=== PATIENT | female | born 1985 | race Caucasian/White ===

== ENCOUNTER 2018-10-14 13:03 | Observation (INO) | payer OTHER ==
--- NOTE | 2018-10-14 14:46 | ED ---
Neurological HPI - HPI Summary HPI Summary: Pt is a 33 y/o F presenting to the ED with a chief complaint of a seizure. 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 Her coworkers stood by her and advised her to drink water, but she couldnt find her water even though it was right in front of her, and then she turned her head to the far left, and her whole body went stiff. Per the pts sister who presents with her, she was very confused and could not see after her episode. She could not recognize her sister or her mom, and told them she had a bite nahid on her tongue. She did not report any headache prior to this incident, but did state she did not feel well. The pt denies feeling nauseous prior to this happening. She currently reports nausea, shortness of breath, fatigue, and dizziness. She denies headache, neck pain, chest pain, fever, dysuria, or burning with urination. - History of Current Complaint Chief Complaint: EDSeizure Stated Complaint: SYNCOPE PER EMS Time Seen by Provider: 10/14/18 14:09 Last Known Well Date: 10/14/18 approx. noontime Hx Obtained From: Patient, Family/Pipe Manufacture Supervisor Onset/Duration: Sudden Onset, Resolved Timing: Intermittent Episodes Lasting: - unsure duration, <10min Onset Severity: Moderate Current Severity: None Seizure Severity: Moderate Number of Seizures: 1 Pain Intensity: 0 Pain Scale Used: 0-10 Numeric Character: Dizzy, Confusion, Lethargy Aggravating: Fatigue Alleviating: Spontanious Resolution Associated Signs and Symptoms: Positive: Headache, Confusion, Seizure, Neck Pain /Stiffness, Shortness of Breath. Negative: Fever, Chest Pain - Allergy/Home Medications Allergies/Adverse Reactions: Allergies Allergy/AdvReac Type Severity Reaction Status Date / Time No Known Allergies Allergy Verified 10/14/18 15:13 Home Medications: Home Medications NK [No Home Medications Reported] 10/14/18 [History Confirmed 10/14/18] PMH/Surg Hx/FS Hx/Imm Hx Previously Healthy: Yes Endocrine/Hematology History: Denies: Hx Diabetes Cardiovascular History: Denies: Hx Hypertension Infectious Disease History: No Infectious Disease History: Denies: Traveled Outside the [place] in Last 30 Days - Family History Known Family History: Negative: Cardiac Disease - Social History Alcohol Use: None Hx Substance Use: No Substance Use Type: Reports: None Hx Tobacco Use: No Smoking Status (MU): Never Smoked Tobacco Review of Systems Positive: Fatigue. Negative: Fever Negative: Chest Pain Positive: Shortness Of Breath Positive: Nausea Negative: burning, dysuria Negative: Myalgia Neurological: Other - dizziness Negative: Headache Positive: Other - confused All Other Systems Reviewed And Are Negative: Yes Physical Exam - Summary Physical Exam Summary: Constitutional: Well-developed, Well-nourished, Alert. (+) Distressed Skin: Warm, Dry HENT: Normocephalic; Atraumatic Eyes: Conjunctiva normal Neck: Musculoskeletal ROM normal neck. (-) JVD, (-) Stridor, (-) Tracheal deviation Cardio: Rhythm regular, rate normal, Heart sounds normal; Intact distal pulses; The pedal pulses are 2+ and symmetric. Radial pulses are 2+ and symmetric. (-) Murmur Pulmonary/Chest wall: Effort normal. (-) Respiratory distress, (-) Wheezes, (-) Rales Abd: Soft, (-) tenderness, (-) Distension, (-) Guarding, (-) Rebound Musculoskeletal: (-) Edema Lymph: (-) Cervical adenopathy Neuro: Alert, Oriented x3, confused Psych: Mood and affect uncomfortable and tearful Triage Information Reviewed: Yes Vital Signs On Initial Exam: Initial Vitals Temp Pulse Resp BP Pulse Ox 98.0 F 86 20 115/70 100 10/14/18 13:17 10/14/18 13:17 10/14/18 13:17 10/14/18 13:17 10/14/18 13:17 Vital Signs Reviewed: Yes - Ulices Coma Scale Best Eye Response: 4 - Spontaneous Best Motor Response: 6 - Obeys Commands Best Verbal Response: 5 - Oriented Coma Scale Total: 15 Procedures - Lumbar Puncture Midline Procedural Sedation: none Position: Sitting Aseptic Technique: Local Anesthesia Anesthesia Used: 1.0% Lido - ~3ml Lumbar Puncture Note: Pt responded well, sterile technique used. Diagnostics - Vital Signs Vital Signs Temp Pulse Resp BP Pulse Ox 10/14/18 13:17 98.0 F 86 20 115/70 100 - Laboratory Result Diagrams: 10/14/18 14:47 10/14/18 14:47 Lab Statement: Any lab studies that have been ordered have been reviewed, and results considered in the medical decision making process. - CT Brain CT CT Interpretation Completed By: Radiologist Summary of CT Findings: No acute intracranial pathology. ED physician has reviewed this report. - EKG 1437 Cardiac Rate: NL - 68bpm EKG Rhythm: Sinus Rhythm ST Segment: Normal Ectopy: None Summary of EKG Findings: EKG at 1437 shows NSR at 68bpm with nml RI interval, nml ST segment, and nml Qtc. This is a normal EKG. Re-Evaluation - Re-Evaluation 1st re-eval Re-Evaluation Time: 14:30 Change: Unchanged Comment: Pt is A&Ox3, neuro exam is normal. There are no focal neurological deficits, cranial nerves are intact, and she seems much more comfortable. Second Eval Re-Evaluation Time: 16:28 Change: Worse Comment: Pt has reportedly had another seizure that lasted about 15 seconds, with associated shoulder twitching and vomiting just after. Pt is presently sleepy. Third Eval Re-Evaluation Time: 20:00 Change: Improved Comment: Pt is alert and oriented x4, doing well, and conversive. Course/Dx - Course Course Of Treatment: Pt is a 33 y/o F presenting to the ED brought in by EMS for a seizure. She was at work, and her coworkers state she reported feeling ill , became giggly, then confused, then she turned her neck to the far left and her whole body tensed. Per the pts sister who presents with her, she was very confused and could not see after her episode. She could not recognize her sister or her mom, and told them she had a bite nahid on her tongue. She did not report any headache prior to this incident, but did state she did not feel well. The pt denies feeling nauseous prior to this happening. She currently reports nausea, shortness of breath, fatigue, and dizziness. She denies headache , neck pain, chest pain, fever, dysuria, or burning with urination. EKG at 1437 shows NSR at 68bpm with nml RI interval, nml ST segment, and nml Qtc. This is a normal EKG. Brain CT shows no acute intracranial pathology. Pts lab work shows nml bloodwork, nml INR, serum alcohol <10. Her chemistry shows a potassium of 3.3, BUN/Creatinine ratio of 27.7, Magnesium of 1.7, and total bilirubin of 1.10. Her lactic acid is 1.8. Pt reportedly has had another seizure at approximately 1628 that lasted about 15 seconds with associated shoulder twitching and vomiting just after. She will be admitted to [facility] under Dr. Sharp with a dx of seizures. - Diagnoses Provider Diagnoses: Seizures Discharge - Sign-Out/Discharge Documenting (check all that apply): Patient Departure - Discharge Plan Condition: Stable Disposition: ADMITTED TO [facility] - Billing Disposition and Condition Condition: STABLE Disposition: Admitted to [facility] - Attestation Statements Document Initiated by Scribe: Yes Documenting Scribe: Radhika Conrad Provider For Whom Ankita is Documenting (Include Credential): Svetlana Carroll MD. Scribe Attestation: IRadhika, scribed for Svetlana Bryant MD. on 10/14/18 at 2241. Scribe Documentation Reviewed: Yes Provider Attestation: The documentation as recorded by the scribe, Radhika Conrad accurately reflects the service I personally performed and the decisions made by me, Svetlana Bryant MD. Status of Scribe Document: Viewed Consult Consult: 163 - I spoke with Dr. Huff about the pt's present condition who recommended admitting the pt for observation, and he will see her in the morning. 182 - I spoke with Dr. Emery who will be accepting the pt for admission.
[2018-10-14 14:55] LABS: ABS Basophils 0.1 10^3/ul (0-0.2); ABS Eosinophils 0 10^3/ul (0-0.6); ABS Lymphocytes 1.2 10^3/ul (1.0-4.8); ABS Monocytes 0.7 10^3/ul (0-0.8); ABS Nucleated RBC 0 10^3/ul; Eosinophil % 0.3 %; Hematocrit 39 % (35-47); Hemoglobin 13.1 g/dL (12.0-16.0); Lymphocyte % 13.8 %; Mean Corpuscular HGB Conc 34 g/dL (31-36); Mean Corpuscular Hemoglobin 31 pg (27-31); Mean Corpuscular Volume 90 fL (80-97); Mean Platelet Volume 7.9 fL (7.4-10.4); Nucleated Red Blood Cells % 0; Platelet Count 234 10^3/uL (150-450); Red Blood Count 4.29 10^6 /uL (3.70-4.87); Red Cell Distribution Width 13 % (10.5-15)
[2018-10-14] MEDS ORDERED: Ondansetron INJ* 2 MG/ML VIAL IV ONE (15:17)
[2018-10-14 15:18] LABS: HCG Pregnancy < 0.60 mIU/mL
[2018-10-14 15:21] LABS: ALT 20 U/L (7-52); AST 23 U/L (13-39); Albumin 4.7 g/dL (3.2-5.2); Alkaline Phosphatase 49 U/L (34-104); Anion Gap 11 mmol/L (2-11); BUN/Creatinine Ratio 27.7 (8-20); Blood Urea Nitrogen 18 mg/dL (6-24); CO2 Carbon Dioxide 23 mmol/L (22-32); Calcium 9.8 mg/dL (8.6-10.3); Chloride 104 mmol/L (101-111); EGFR African American 128.6 (>60); EGFR Non-African American 106.3 (>60); Globulin 2.4 g/dL (2-4); Glucose 114 mg/dL (70-100); Magnesium 1.7 mg/dL (1.9-2.7); Potassium 3.3 mmol/L (3.5-5.0); Sodium 138 mmol/L (135-145); Total Protein 7.1 g/dL (6.4-8.9)
[2018-10-14 15:50] LABS: Alcohol < 10 mg/dL (<10)
[2018-10-14 15:51] LABS: TSH (Thyroid Stimulating Horm) 1.69 mcIU/mL (0.34-5.60)
[2018-10-14] MEDS ORDERED: Magnesium Sulfate 1 GM IV* 1 GM/100 ML BAG IV ONE (16:08)
[2018-10-14] MEDS ORDERED: Potassium Chlor TAB* 20 MEQ TAB.ER PO ONE (16:08)
[2018-10-14] MEDS ORDERED: PROCHLORPERAZINE INJ 5 MG/ML 2 ML VIAL IV ONE (17:33)
[2018-10-14] MEDS ORDERED: KCL 20 MEQ/100 ML IVPREMIX* 20 MEQ/100 ML BAG IV ONE (18:26)
[2018-10-14 19:16] LABS: Urine Appearance Clear; Urine Bilirubin Negative (Negative); Urine Blood Negative (Negative); Urine Color Yellow; Urine Glucose Negative (Negative); Urine Ketones 2+ (Negative); Urine Nitrite Negative (Negative); Urine Protein Negative (Negative); Urine Specific Gravity 1.017 (1.010-1.030); Urine Urobilinogen Negative (Negative)
[2018-10-14] MEDS ORDERED: Acetaminophen TAB* 325 MG PO ONE (20:06)
[2018-10-14 20:09] LABS: Body Fluid Source Cerebral Spinal
[2018-10-14] MEDS ORDERED: Acetaminophen TAB* 325 MG PO PRN (20:17)
[2018-10-14] MEDS ORDERED: Ondansetron INJ* 2 MG/ML VIAL IV PRN (20:17)
[2018-10-14 20:26] LABS: CSF Glucose 72 mg/dL (40-70)
[2018-10-14 21:09] LABS: Body Fluid Mono 4 %
[2018-10-14 21:11] LABS: Body Fluid Comment SEE COMMENTS
[2018-10-14] MEDS: NS 0.9% 1000 ML** 1,000 ML IV SCH (22:15)
--- NOTE | 2018-10-14 23:18 | HP ---
CC: Katie Becker NP * HISTORY AND PHYSICAL: DATE OF ADMISSION: 10/14/18 PRIMARY CARE DOCTOR: Katie Becker NP. MY ATTENDING PHYSICIAN WHILE IN HOSPITAL: Dr. Bari Quintana * (DICTATED BY ARIANA PEREZ) CHIEF COMPLAINT: Seizure x2. HISTORY OF PRESENT ILLNESS: Ms. Lvein is a 33-year-old female with no significant past medical history, who presents to the emergency department after today she was feeling in her normal state of health until about lunch time when she began to feel lightheaded, dizzy and she states she felt like the room was frankly spinning. She had some nausea, did not feel like she vomited at this time. The patient has, per her report, never felt like this before, but her sister does state that the patient has reported to her previously feeling similarly around lunchtime, which she related to low blood sugar, but that she did feel dizzy, but has never passed out before. The patient is on a ketogenic diet. The patient denies any fevers, chills. No recent sick contacts , though she does work at [employer]. The patient since the morning of 07/04 has had a severe headache. The patient does not usually get headaches. The patient describes the headache as bitemporal, pounding. There was some concern the patient had changes in her vision, but her vision normalized after it was found she was not wearing her glasses. The patient was noticed at [employer] to have loss of consciousness with convulsive movements. The circumstances surrounding this are unclear at this time; the patient unable to provide them. The patient was confused upon arrival to the emergency department. The patient in the emergency department had another episode that lasted approximately 15 seconds wherein she was sat up, felt nauseated and then forcibly knocked her head back and then had twitching in her right arm. The patient lost consciousness for approximately 15 seconds, but the twitching in her right arm persisted. After this time, the patient had again vomited after this episode. The patient states that her headache had diminished significantly after her seizures, but was still rated approximately 7/10. The patient denies photophobia or phonophobia. No fevers or chills. No chest pain , shortness of breath, abdominal pain, diarrhea or pain with urination. The patient takes no medications except for multivitamins. The patient took nothing for her headache. Due to the concern for new onset seizure, we were asked to evaluate the patient for admission to hospital. PAST MEDICAL HISTORY: None. PAST SURGICAL HISTORY: None. MEDICATIONS: Multivitamin. ALLERGIES: No known drug allergies. FAMILY HISTORY: The patient's mother and father are alive and well. The patient's maternal grandfather of lung cancer. The patient's maternal grandmother of complication of diabetes. The patient's paternal grandmother of colon cancer. The patient's paternal grandfather's medical history is unknown. SOCIAL HISTORY: The patient is never smoker, does not drink, does not use illicit drugs. 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 The patient is , has 2 children. The patient's surrogate decision maker I believe is her sister Cecy Thibodeaux . REVIEW OF SYSTEMS: A 14-point review of systems was reviewed with the patient and is negative except as above in the HPI. PHYSICAL EXAMINATION GENERAL: The patient is a 33-year-old female, who appears stated age and sitting comfortably in bed, in no acute distress. VITAL SIGNS: At the time of evaluation, temperature 98.0, pulse rate 90, respiratory rate 20, oxygen saturation 100% on room air, blood pressure 99/47. HEENT: Head: Normocephalic, atraumatic. Sclerae anicteric. No conjunctival injection. Nasal mucosa moist. Oral mucosa moist. No pharyngeal erythema, discharge, or exudate. NECK: Supple, nontender. No lymphadenopathy. No carotid bruit auscultated. No JVD. RESPIRATORY: Clear to auscultation bilaterally. No wheezes, rales or rhonchi. Good air exchange bilaterally. CARDIAC: Regular rate and rhythm. No clicks, murmurs, gallops or rubs. Pulse is 2+ in the dorsalis pedis, posterior tibialis, and radial areas. ABDOMEN: Soft, nontender, nondistended. Bowel sounds present. Normoactive in all 4 quadrants. No hepatosplenomegaly. No abdominal bruits auscultated. No hepatojugular reflux. GENITOURINARY: No suprapubic or CVA tenderness. NEUROLOGIC: Cranial nerves II through XII intact. No focal deficits. The patient is drowsy, but is arousable and oriented x3. PSYCHIATRIC: Pleasant and cooperative. SKIN: Clean, dry, intact. No rash. DIAGNOSTIC STUDIES/LAB DATA: White blood cell count 11.0, hemoglobin 13.1, platelet count 234, INR 1.0. Sodium 138, potassium 3.3, chloride 104, carbon dioxide 23, anion gap 11, BUN 18, creatinine 0.65, BUN:creatinine ratio 27.7, glucose 117, lactic acid 1.8, calcium is 9.8, magnesium 1.7, bilirubin 1.1, AST 23, ALT 20, alkaline phosphatase is 49. Protein 7.1, albumin 4.7, globulin 2.4 , TSH 1.69, beta-hCG less than 0.6. Urine yellow clear, 2+ ketones, otherwise unremarkable. CSF glucose 72, CSF total protein 33, cell count pending at this time. Serum alcohol less than 10. Studies: CT brain shows no acute intracranial pathology. Electrocardiogram shows normal sinus rhythm, early repolarization in V2, normal axis, rate of 68, QTc of 461. No other significant abnormalities. ASSESSMENT AND PLAN: Impression: Ms. Levin is [id number] with no significant past medical history, who presents to the emergency department after having a witnessed seizure at her place of work and then another seizure in the emergency department. The patient remains in the hospital for evaluation and institution of appropriate treatment. 1. New onset seizures. The patient had convulsions witnessed twice. The patient's second convulsions were witnessed by her sister who relates that she moved her head forcibly backwards and to her left and then had right handed twitching. The patient became very stiff throughout this time as well. This happened right after the patient sat up. Given this occurred when the patient sat up and she has been having low blood pressures, is on a very restricted diet , has other signs on her lab work of have being dehydrated, it is possible this represents convulsive syncope. This would be consistent with patient feeling lightheaded around lunchtime on previous days as well. However, this could also be new onset epilepsy. There is also concern by Neurology for this being related to viral meningitis, though the patient does not have a fever. The patient does have a headache. The patient has not had fever or other signs of meningitis. The patient is status post lumbar puncture, the results of which are pending at this time. Appropriate treatment will be instituted. Herpes simplex PCR has been sent, though the patient has normal protein again arguing against this. The patient will have an EEG and neurology consult in the morning. 3. Dehydration. The patient is dehydrated, likely related to her restrictive diet. The patient will be given fluids for blood pressure support and to help prevent repeat possible convulsive syncope . 4. DVT prophylaxis. The patient was ad jenelle. 5. FEN. The patient will be on a regular unrestricted diet and fluids at 125 mL an hour. 6. Disposition: The patient will be admitted under observation. TIME SPENT: Approximately 75 minutes were spent on this admission of this patient; 30 of which was spent [id number] with the patient, entire family, obtaining history and physical and discussing treatment plan. This plan was discussed with my attending, Dr. Dr. Bari Quintana, and he is in agreement. ARIANA PEREZ [id number]/CPS #: [id number] HILARY
[2018-10-15] MEDS: NS 0.9% 1000 ML** 1,000 ML IV SCH (05:54)
[2018-10-15 06:21] LABS: ABS Basophils 0 10^3/ul (0-0.2); ABS Eosinophils 0.1 10^3/ul (0-0.6); ABS Lymphocytes 1.6 10^3/ul (1.0-4.8); ABS Neutrophils 6.3 10^3/ul (1.5-7.7); ABS Nucleated RBC 0 10^3/ul; Eosinophil % 0.6 %; Hematocrit 33 % (35-47); Hemoglobin 11.4 g/dL (12.0-16.0); Mean Corpuscular HGB Conc 34 g/dL (31-36); Mean Corpuscular Hemoglobin 31 pg (27-31); Mean Corpuscular Volume 91 fL (80-97); Mean Platelet Volume 8.1 fL (7.4-10.4); Nucleated Red Blood Cells % 0; Platelet Count 215 10^3/uL (150-450); Red Blood Count 3.68 10^6 /uL (3.70-4.87); Red Cell Distribution Width 13 % (10.5-15); White Blood Count 8.9 10^3/uL (3.5-10.8)
[2018-10-15 06:37] LABS: BUN/Creatinine Ratio 18.2 (8-20); Calcium 8.6 mg/dL (8.6-10.3); EGFR Non-African American 128.9 (>60); Potassium 3.4 mmol/L (3.5-5.0)
[2018-10-15 08:11] VITALS: BP 92/49
[2018-10-15] MEDS ORDERED: Gadoteridol* (CONTRAST) 279.3 MG/ML 10 ML IV ONE (09:53)
[2018-10-15] MEDS ORDERED: Gadoteridol* (CONTRAST) 279.3 MG/ML 10 ML IV SCH (10:00)
[2018-10-15] MEDS ORDERED: Potassium Chloride LIQUID 20 MEQ/15 ML PO ONE (10:02)
[2018-10-15] MEDS ORDERED: lamoTRIgine TAB(*) 25 MG PO ONE ×2 (12:33→13:00)
[2018-10-15] MEDS ORDERED: levETIRAcetam TAB* 500 MG PO SCH (13:00)
[2018-10-15] MEDS ORDERED: LAMOTRIGINE 25 MG PO SCH (13:00)
--- NOTE | 2018-10-15 16:28 | CONSULT ---
Consult Consult: I added a paraneoplastic panel to the CSF to rule out any mild form of limbic encephalitis that can be causing Flory to have new onset seizures. I will follow-up with the results. Gucci Huff MD
--- NOTE | 2018-10-15 17:05 | CONS ---
NEUROLOGY CONSULTATION NOTE: DATE OF CONSULT: 10/15/18 CONSULTING PROVIDER: Dr. Knox. REASON FOR CONSULT: Seizure. CHIEF COMPLAINT: Seizure. HISTORY OF PRESENT ILLNESS: Mrs. Flory Levin is a 33-year-old fairly healthy female who had 2 witnessed seizures on 10/14/18. According to the bystanders, the patient was apparently complaining of feeling dizzy. She did not remember going on a lunch break or having popcorn with friends. She was asked to sit down when she was feeling dizzy. After few minutes, she was able to get up and walk to a nearby lunch room. Friends were reporting that she was inappropriately giggling. She could not stop trembling and shaking her extremities. She also asked to have a drink of water during this time. Then suddenly, the patient was laid slowly on to the ground where she immediately "whipped her head" towards one side. The exact direction of the head turning was unknown. She started vomiting. Paramedics were contacted and she was placed on a stretcher. Dr. 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 The patient stated that she does not remember getting into the ambulance or arriving at the hospital. She was reported to be confused by family. She was unable to recognize other family members while in the ER. Approximately, 4 hours after the first incident at 4: 25 p.m., the patient wanted to sit up and then suddenly, she had another event. At that time, her sister was able to describe the incident as head deviation towards the left side, eyes rolling to the back of the head, foaming of the mouth, and generalized convulsion. Prior to the event, she had right-sided tremors. She denied any impairment in her bowel or bladder functions, but did have a small laceration on the left side of the tongue. The patient was not treated with any medications and after 20 seconds, the symptoms went away. The patient has not had any events since yesterday. She was never treated with seizure medications. She was extensively evaluated with recent laboratory data showing a WBC of 9.0, hemoglobin of 13.1, hematocrit of 39, platelet count of 234, sodium of 138, potassium 3.3, chloride of 104, BUN of 18, creatinine of 0.65, lactic acid of 1.8, glucose of 114. Urinalysis showed no evidence of pyuria. She had a lumbar puncture done because she was complaining of headaches following the seizure. The lumbar puncture showed no evidence of any infection. CSF wbc is 1, rbc is 1, total cell count of 24, lymphocytic count of 20, glucose of 72 and total protein of 33. Serum alcohol level was less than 10. Urine toxicology screen was not done. She had a CT of the head without contrast, it showed no evidence of intracranial abnormality. She had an MRI of brain with and without contrast, seizure protocol, that showed no evidence of mesial temporal sclerosis or heterotopia. The patient did have an EEG that showed multifocal areas of slowing with some increased areas of epileptogenic potential in the left frontal region. SEIZURE RISK FACTORS: The patient has no history of meningitis or encephalitis. She was born full-term via normal vaginal delivery. She had no developmental complications. She was graduated from college. She denied any head trauma. She denied any brain or spinal cord surgery. There is no family history of epilepsy. PAST MEDICAL HISTORY: The patient complains of fatigue. She had a sleep study done 6 months ago and it was normal. She was placed on Provigil for few months , but the patient ran out of the medications 2 months ago. She has never had a refill for Provigil. The patient did endorse sleep deprivation. She only had 4 - 1/2 hours of sleep that night. PAST SURGICAL HISTORY: None. She had 2 normal vaginal deliveries. FAMILY HISTORY: No family history of stroke or seizures. Her parents are fairly healthy. SOCIAL HISTORY: Denied any tobacco or alcohol use. She is happily . She stated that she has increasing stress recently because her had to leave the state for work for 1 night. She is not used to being home alone without her . MEDICATIONS: None. ALLERGIES: No known drug allergies. REVIEW OF SYSTEMS: A 14-point review of systems was obtained and otherwise negative, except for what was mentioned in the HPI. PHYSICAL EXAMINATION: Vital Signs: Temperature of 98.2, pulse of 65, respiratory rate of 16, oxygen saturation 98%, blood pressure of 92/49. Please note that the patient did have orthostatic vitals checked and orthostatic vitals are negative except for her heart rate increase from 83 to 115 when standing which is positive. General: A well-nourished, well-developed female, in no acute distress. Head: Normocephalic without any obvious abnormality. Eyes: Conjunctivae/corneas are clear. Neck is supple and symmetrical. No carotid bruits. Lungs are clear to auscultation bilaterally. Cardiovascular: Regular rate and rhythm with normal S1 and S2. Extremities: Normal range of motion with no cyanosis. Skin: No skin lesions or lacerations. Psychiatric: Affect is broad and normal mood. She did seem slightly anxious during the interview. Neurological Examination: Mental status: Awake, alert, oriented to person, place, time and general circumstances. Speech and language including expression , naming, repetition and comprehension were assessed and found to be normal. Cranial Nerves: Normal confrontation testing bilaterally. Pupils are mid range and reactive. Extraocular muscles are intact. Sensation is intact in the forehead, cheeks and jaw region bilaterally. There is no facial droop. She is able to hear throughout the history process. Symmetrical palatal elevation. Normal strength against resistance. Tongue is symmetrical and midline with no atrophy or fasciculation. Motor Examination: No abnormal movements or pronator drift. A 5/5 strength in the upper and lower extremities. Reflexes are 2+ in the brachioradialis, biceps, triceps, patella, ankle and downgoing plantar responses bilaterally. Sensation is intact to light touch throughout. Coordination: Normal [id number] and rapid alternating movement. Gait and Station: Narrow based, normal stance and gait. No ataxia. ASSESSMENT AND RECOMMENDATIONS: Mrs. Flory Levin is a 33-year-old fairly healthy female who has a history of fatigue and was placed on Provigil in the past, who presented with 2 seizures four hours apart. She did not seem to completely regain awareness after the first seizure. 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 She did not have any evidence of intracranial abnormality on MRI, specifically no hypothalamic hamartomas or mesial temporal sclerosis. The only concerning finding here is the EEG abnormality which was abnormal suggestive of possible increased epileptogenic potentials. Given that she has an EEG abnormality, this would increase her risk of seizure recurrence by up to 50% within the next 2 years. The patient does also have evidence of orthostatic hypotension which could also be contributing to her presentation, but should not be causing the EEG abnormalities. After giving all the results to the patient and family members at the bedside, we have decided to proceed with treatment with anti-seizure medications to prevent another seizure. She may have had seizures for a long time and that may be explaining some of her nonspecific symptoms of fatigue. She did recall a few events where she would wakes up feeling extremely sore in the morning, which was not explained by any recent strenuous activity. Her does not recall seeing her ever having seizures during sleep. We started levetiracetam 500 mg twice daily with the goal of putting her on lamotrigine. Therefore, I started lamotrigine also 25 mg daily to increase the dose by 25 mg every 2 weeks until we reach a maintenance dose of 200 mg daily. I will follow up with the patient in 2 to 3 weeks. We discussed the [facility] rules and regulation regarding driving restriction. I encouraged her to visit her local DMV. She should not be driving for at least 12 months, but if she is compliant to medication and does not have any recurrent episodes, then this driving restriction may decrease to 3 to 6 months. I also advised her not to climb ladders, roof tops, swim or bathe unattended. The patient verbalized understanding. Please order a urine toxicology screen (Ordered). TIME SPENT: A total of 75 minutes was spent, of which greater than 50% was spent obtaining history, examining the patient, education, counseling and discussing the treatment plan options with the patient, her mother, her father, her sisters, her and her [id number]. I answered all their questions to the best of my abilities. I will see the patient as an outpatient. [id number]/[facility] #: [id number] HILARY
--- NOTE | 2018-10-15 22:17 | EEG ---
ELECTROENCEPHALOGRAPHY: DATE OF STUDY: 10/15/18 - ROOM #434 DATE READ: 10/15/18 ORDERED BY: ARIANA Smith INDICATIONS: Mrs. Levin is a 33-year-old female with history of an episode of 2 seizures. This EEG was requested to evaluate for epileptiform abnormalities or electrographic seizures. MEDICATIONS: Tylenol, Zofran. RECORDING TIME: 8:33 to 8:58. CLINICAL STATE: Awake and sleep. REPORT: The most prominent feature of this recording were frequent, high amplitude, diffuse but frontally predominant, intermittent, 2-3 Hz delta slowing lasting 1-3 seconds. In addition, there were independent right and left frontotemporal polymorphic theta and delta slowing seen throughout the recording. There were rare sharp epileptiform discharges seen in the left frontal region during drowsy state. There were diffuse low voltage faster beta frequencies seen throughout the recording. Otherwise, the background consisted of a mixed frequency slowing in the delta and theta range with areas of retained organization and discernible anterior and posterior voltage gradient. At the end of the recording, there was a waking background rhythm of 9 Hz, which was symmetric and showed normal reactivity. Attenuation of the occipital rhythm accompanied drowsiness. The sleep background was disorganized with persistent theta frequency and brief runs of sleep spindles and vertex waves. These sleep transients showed appropriate morphology and are bilaterally synchronous and symmetrical. Hyperventilation and photic stimulation were not performed. Single electrode EKG showed a normal sinus rhythm with a rate of 60 beats per minute. Throughout the recording, there were no electrographic seizures. CLINICAL IMPRESSION: This is an abnormal awake and asleep EEG due to the followin. Rare left frontal spike and slow wave epileptiform discharges seen during drowsiness, which suggest an increased area of epileptogenic potential. 2. Diffuse polymorphic, but predominantly delta slowing involving the bifrontal regions. These can be seen in mild encephalopathy in the setting of toxic metabolic disturbance or postictal state. 3. Multifocal areas of polymorphic slowing in the right and left temporal region suggestive of multifocal areas of neuronal dysfunction. 4. There were no electrographic seizures. I discussed these results with the patient and Dr. Goode at 11:45 a.m. on 10/15. [id number]/[facility] #: [id number] [facility] HOSPITALBarrett
--- NOTE | 2018-10-16 02:53 | DS ---
CC: Gucci Huff MD; Moira Aguirre NP * DISCHARGE SUMMARY: DATE OF ADMISSION: 10/14/18 DATE OF DISCHARGE: 10/15/18. PRIMARY CARE PHYSICIAN: Moira Aguirre NP PRINCIPAL DISCHARGE DIAGNOSIS: New onset seizure. SECONDARY DISCHARGE DIAGNOSIS: Orthostatic hypotension. MEDICATIONS AT DISCHARGE: 1. Keppra 500 mg b.i.d. 2. Lamotrigine 25 mg q.h.s. PHYSICAL EXAM AT DISCHARGE: Temperature 98.2, heart rate 65, respiratory rate 16, pulse ox 98% on room air, blood pressure 92/49. General: Alert, well- appearing young female, sitting up in bed, eating lunch. She is in no distress. HEENT: Her pupils are equal, round, reactive to light. Oral mucosa is moist. Neck: No JVP. No adenopathy. Chest: Regular rate and rhythm with no murmurs. Her lungs are clear bilaterally. Abdomen is soft, nontender, nondistended. No CVA tenderness. Extremities: No edema, rashes or ulcers. Neurologic: No nystagmus. She is oriented x3. No asterixis. Her strength is 5/5 in all extremities. PERTINENT IMAGING: An MRI was completed on 10/15/18, which showed unremarkable MRI of the brain. No abnormal enhancement. The mesial temporal lobes are symmetric. There is no appreciable cortical dysplasia or heterotropia. EEG: The full EEG report has not been uploaded yet; however, per Dr. Huff's report and consultation, it showed multifocal areas of swelling with some increased areas of epileptogenic potential in the left frontal region. HOSPITAL COURSE BY PROBLEM: 1. New onset seizures. Please see the H and P for a complete description of the history of present illness. In summary, Flory was noted to have 2 generalized seizures on the day of admission without a clear provoking factor. She has no history of seizures, no history of head trauma, no family history of seizures and a urine drug screen is pending at the time of discharge. Her MRI was unremarkable; however, her EEG did show an area of slowing and an epileptogenic area, so Dr. Huff recommended initiation of Keppra 500 mg b.i.d. and also lamotrigine with a plan to see her in 2 weeks and titrate the lamotrigine and eventually wean off the Keppra. She is not to drive for 12 months, but if she is compliant with medications and does not have any recurrent episodes, the driving restriction may decrease to 3 to 6 months. Again, Dr. Huff will follow her closely in the outpatient setting. 2. Orthostasis. Syncope with convulsions was also in the differential as she was noted to be orthostatic and has been following a new diet recently; however , given the abnormal EEG, seizures are more likely. STUDIES PENDING AT THE TIME OF DISCHARGE: Urine drug screen and CSF paraneoplastic panel, Dr. Huff will follow her up on these labs. TIME SPENT: 40 minutes was spent on this discharge. [id number]/[facility] #: [id number] HILARY
[2018-10-16 18:54] LABS: HSV 1 PCR, CSF Negative (Negative); HSV 2 PCR, CSF Negative (Negative)
== END 2018-10-15 15:50 | disposition home or self-care (01) ==
LOC: ED 13:03 → MEDTELE 20:17
PROVIDERS: ADMIT Internal Medicine; ATTEND Internal Medicine
DX: I95.1 Orthostatic hypotension (principal); R42 Dizziness and giddiness; E86.0 Dehydration; R11.0 Nausea; R41.0 Disorientation, unspecified; R51 Headache; R06.02 Shortness of breath; R53.83 Other fatigue
CPT/HCPCS: 36415; 62270; 70450; 70553; 80048; 80053; 80320; 81003; 82945; 83605; 83735; 84157; 84443; 84702; 85025; 85610; 86255; 87070; 87205; 87529; 89051; 93005; 95819; 96365; 96375; 99285; A9270-GY; A9579; G0378; G0480; J0780; J2405; J3475; J3480